=== PATIENT | male | born 1930 | race Caucasian/White ===

== ENCOUNTER 2018-07-14 15:38 | Emergency (ER) | payer OTHER ==
[~2018-07-14] VITALS: Wt 81.0 kg
[2018-07-14] MEDS ORDERED: CPR3OO3.5 LEFT EYE (18:27)
--- NOTE | 2018-07-14 18:42 | ERD ---
ER Documentation Chief Complaint Chief Complaint LEFT EYE REDNESS AND ITCHY HPI This is a 87-year-old male here for left eye redness for 2 weeks. The patient has a history of bilateral corneal transplants and is been complaining of left itchy eye and erythema to the conjunctiva for 2 weeks. He says that he has some slight clear discharge and has some blurry vision on the left eye that is slightly worse than baseline. There is no pain. No headache. No vertigo no focal neurological complaints no fever. He said the main complaint that he had was his eye was itching but it stopped 2 days ago. 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 Medications Home Meds Active Scripts Ciprofloxacin Opht* (Ciloxan*) 0.3%-3.5 Opht Oint, 1 APPLIC LEFT EYE QID, #1 EA Prov:KALANI BURKS DO 07/14/18 PMhx/Soc Medical and Surgical Hx: pt denies Medical Hx, pt denies Surgical Hx History of Surgery: No Anesthesia Reaction: No Hx Neurological Disorder: No Hx Respiratory Disorders: No Hx Cardiac Disorders: No Hx Psychiatric Problems: No Hx Miscellaneous Medical Probl: Yes (bladder stone, corneal transplant, and cateract surgery ) Hx Alcohol Use: No Hx Substance Use: No Hx Tobacco Use: No Smoking Status: Never smoker FmHx Family History: No coronary disease Physical Exam Vitals Vital Signs Date Temp Pulse Resp B/P (MAP) Pulse Ox O2 O2 Flow FiO2 Time Delivery Rate 07/14/18 98.1 79 18 165/76 99 Room Air 18:13 (105) 07/14/18 98.1 77 18 176/71 99 15:59 (106) Physical Exam Const: No acute distress Head: Atraumatic Eyes: The left pupil is equal round reactive to light, the left eye has injected conjunctiva no shailesh-orbital swelling or erythema ENT: Normal External Ears, Nose and Mouth. Neck: Full range of motion. No meningismus. Resp: Clear to auscultation bilaterally Cardio: Regular rate and rhythm, no murmurs Abd: Soft, non tender, non distended. Normal bowel sounds Skin: No petechiae or rashes Back: No midline or flank tenderness Ext: No cyanosis, or edema Neur: Awake and alert Psych: Normal Mood and Affect Procedures/MDM Patient likely has some type of allergic conjunctivitis due to the itching or may have bacterial/viral. Will treat with Ciloxan and told patient to call his eye doctor on Monday morning Departure Diagnosis: Primary Impression: Conjunctivitis Conjunctivitis type: acute Acute conjunctivitis type: bacterial Laterality: left Qualified Codes: H10.32 - Unspecified acute conjunctiviti s, left eye Condition: Stable Patient Instructions: Conjunctivitis Caused by Infection KALANI BURKS DO Jul 14, 2018 18:42
[2018-07-14 18:44] VITALS: BP 158/62; PULSE 78; RESP 15
== END 2018-07-14 18:44 | disposition home or self-care (01) ==
LOC: E/R 15:38
DX: H10.32 Unspecified acute conjunctivitis, left eye (principal)
CPT/HCPCS: 99283